=== PATIENT | female | born 2000 | race African-American/Black ===

== ENCOUNTER 2020-10-16 05:37 | Inpatient (IN) | payer MEDICAID ==
[~2020-10-16 05:37] MED LIST: Acetaminophen 500 MG Tab PO ONE; Celecoxib 200 MG Cap PO ONE; Scopolamine 1.5 MG Transdermal Patch TOP ONE
[2020-10-16] MEDS ORDERED: Dextrose 5%-Lactated Ringers 1,000 ML IV SCH ×2 (06:00→10:00)
[2020-10-16] MEDS ORDERED: cefOXitin 2 GM Vial ONE (06:33)
[2020-10-16] MEDS ORDERED: cefOXitin 2 GM in Sodium Chloride 0.9% 50 ML IV ONE (07:00)
[2020-10-16] MEDS ORDERED: Dexamethasone 4 MG/ML SDV ONE (07:02)
[2020-10-16] MEDS ORDERED: Ondansetron 4 MG/2 ML SDV ONE (07:02)
[2020-10-16] MEDS ORDERED: Glycopyrrolate 0.2 MG/ML 5 ML MDV ONE (07:02)
[2020-10-16] MEDS ORDERED: Succinylcholine 200 MG/10 ML MDV ONE (07:02)
[2020-10-16] MEDS ORDERED: Neostigmine Methylsulfate 1 MG/ML 5 ML Syringe ONE (07:02)
[2020-10-16] MEDS ORDERED: Rocuronium 50 MG/5 ML Vial ONE (07:02)
[2020-10-16] MEDS ORDERED: Propofol 200 MG/20 ML SDV ONE (07:02)
[2020-10-16] MEDS ORDERED: fentaNYL 250 MCG/5 ML SDV ONE ×2 (07:04→07:37)
[2020-10-16] MEDS ORDERED: Ketamine 50 MG in Sodium Chloride 0.9% 49.5 ML IV SCH (07:30)
[2020-10-16] MEDS ORDERED: MAGNESIUM SULFATE IV ONE (07:30)
[2020-10-16] MEDS ORDERED: Magnesium Sulfate 3.8 GM in Sodium Chloride 0.9% 100 ML IV SCH (07:30)
[2020-10-16] MEDS ORDERED: SODIUM CHLORIDE 0.9% IV ONE (07:30)
[2020-10-16] MEDS ORDERED: Ketamine 500 MG/5 ML MDV IV SCH (07:30)
[2020-10-16] MEDS ORDERED: fentaNYL 100 MCG/2 ML SDV ONE (08:16)
[2020-10-16] MEDS ORDERED: Sugammadex Sodium 200 MG/2 ML VIAL ONE (08:33)
[2020-10-16] MEDS ORDERED: hydrOXYzine HCL 100 MG/2 ML SDV IM ONE (08:54)
[2020-10-16] MEDS ORDERED: fentaNYL 100 MCG/2 ML SDV IVPUSH ONE (08:54)
[2020-10-16] MEDS ORDERED: Cyclobenzaprine 10 MG Tab PO PRN (10:01)
[2020-10-16] MEDS ORDERED: Calcium Gluconate 10% 1 GM/10 ML SDV IVPUSH PRN (11:00)
[2020-10-16] MEDS ORDERED: diphenhydrAMINE 50 MG/ML SDV IVPUSH PRN (11:00)
[2020-10-16] MEDS ORDERED: hydrOXYzine HCL 100 MG/2 ML SDV IM PRN (11:00)
[2020-10-16] MEDS ORDERED: Acetaminophen 500 MG Tab PO PRN (11:00)
[2020-10-16] MEDS ORDERED: HYDROmorphone 0.5 MG/0.5 ML Syringe IVPUSH PRN (11:00)
[2020-10-16] MEDS ORDERED: Labetalol 20 MG/4 ML Syringe IVPUSH PRN (11:00)
[2020-10-16] MEDS: Ondansetron 4 MG/2 ML SDV IVPUSH PRN (11:18)
[2020-10-16] MEDS: Acetaminophen 500 MG Tab PO SCH ×2 (13:22→21:38)
[2020-10-16] MEDS: cefOXitin 2 GM in Sodium Chloride 0.9% 50 ML IV SCH ×2 (13:22→20:31)
[2020-10-16] MEDS ORDERED: Pantoprazole 40 MG Vial IVPUSH SCH (14:00)
[2020-10-16] MEDS: Metoclopramide 10 MG/2 ML SDV IVPUSH PRN (14:15)
[2020-10-16] MEDS: Heparin Sodium 5,000 Units/ML Vial SUBCUT SCH (15:38)
[2020-10-16] MEDS ORDERED: MVI, Adult with Vitamin K 10 ML, Thiamine 200 MG, Zinc/Copper/Manganese/Selenium 1 ML i... IV SCH ×4 (16:00)
[2020-10-16] MEDS: HYDROmorphone 1 MG/ML Syringe IV PRN (18:37)
[2020-10-16] MEDS: buPROPion 150 MG Tab.SR PO SCH (20:35)
[2020-10-16] MEDS ORDERED: Acetaminophen Soln 650 MG/20.3 ML UD Cup PO PRN (21:59)
[2020-10-16] MEDS: Acetaminophen Soln 650 MG/20.3 ML UD Cup PO SCH (22:12)
[2020-10-17] MEDS: Ondansetron 4 MG/2 ML SDV IVPUSH PRN (01:12)
[2020-10-17] MEDS: HYDROmorphone 1 MG/ML Syringe IV PRN (01:16)
[2020-10-17] MEDS: cefOXitin 2 GM in Sodium Chloride 0.9% 50 ML IV SCH (01:21)
[2020-10-17] MEDS ORDERED: Iopamidol 612 MG/ML 50 ML SDV PO STA (03:11)
[2020-10-17] MEDS: Heparin Sodium 5,000 Units/ML Vial SUBCUT SCH ×2 (03:12→15:38)
[2020-10-17] MEDS: Acetaminophen Soln 650 MG/20.3 ML UD Cup PO SCH ×3 (06:00→21:38)
[2020-10-17] MEDS ORDERED: Dextrose 5%-Lactated Ringers 1,000 ML IV SCH (07:15)
[2020-10-17] MEDS ORDERED: hydrOXYzine HCl 25 MG Tab PO PRN (07:16)
[2020-10-17] MEDS: buPROPion 150 MG Tab.SR PO SCH ×2 (08:47→21:38)
[2020-10-17] MEDS: Spironolactone 25 MG Tab PO SCH (08:47)
[2020-10-17] MEDS: Celecoxib 200 MG Cap PO SCH ×2 (08:47→21:37)
[2020-10-17] MEDS: Ondansetron 4 MG Tab.DIS PO PRN ×2 (08:53→19:46)
[2020-10-17] MEDS ORDERED: SCOPOLAMINE PATCH CHECK TOP SCH (09:00)
--- NOTE | 2020-10-17 09:14 | PN ---
DATE OF SERVICE: 10/17/2020 SUBJECTIVE: Ever is postoperative day #1. Pain has been controlled. She has been up, ambulating. Oral intake is 660. Urine output 2550. She has no concerns or questions. OBJECTIVE: GENERAL: Ever is a pleasant 20-year-old female. VITAL SIGNS: TPR is 99, 99, 20, blood pressure 144/99. HEENT: Negative. NECK: Supple. HEART: Regular rate and rhythm. LUNGS: Clear. ABDOMEN: Dressings dry and intact. Abdominal binder is on. CLARICE drain is as above. EXTREMITIES: peripheral edema. ASSESSMENT: Laparoscopic sleeve gastrectomy, liver biopsy, repair of diaphragmatic hernia for morbid obesity, hepatomegaly, diaphragmatic hernia. Date of procedure: 10/16/2020. Surgeon: Narendra Nieto MD. PLAN: 1. Decrease IV to 100 mL per hour. 2. Step 2 gastric bypass diet with no cereal. 3. Atarax 25 mg one q.4 hours p.r.n. pain. 4. Zofran 4 mg ODT q.4 hours p.r.n. nausea. 5. Discontinue IV Dilaudid. 6. Dressing off, may shower. 7. Communication order: 3 med cups per hour, record at bedside. 8. We will evaluate p.r.n. or in a.m. Barbara Mercado PA-C /[id number]
--- NOTE | 2020-10-17 09:21 | CR ---
[facility] HISTORY: Postbariatric surgery FINDINGS: Patient swallowed water-soluble contrast. Upright views of the abdomen show no evidence of extravasation or obstruction. There is a surgical drain in the left upper quadrant. IMPRESSION: Status post bariatric surgery No extravasation or obstruction seen
[2020-10-17] MEDS: oxyCODONE 5 MG Tab PO PRN ×2 (09:50→19:45)
[2020-10-17] MEDS: Metoclopramide 10 MG/2 ML SDV IVPUSH PRN (10:23)
[2020-10-17] MEDS ORDERED: MVI, Adult with Vitamin K 10 ML, Thiamine 200 MG, Zinc/Copper/Manganese/Selenium 1 ML i... IV SCH ×4 (16:00)
[2020-10-17] MEDS ORDERED: Pantoprazole 40 MG Delayed-Release Granules 1 Packet PO SCH (16:00)
[2020-10-18] MEDS: Acetaminophen Soln 650 MG/20.3 ML UD Cup PO SCH (04:59)
[2020-10-18] MEDS: Heparin Sodium 5,000 Units/ML Vial SUBCUT SCH (04:59)
[2020-10-18] MEDS: Spironolactone 25 MG Tab PO SCH (08:30)
[2020-10-18] MEDS: Celecoxib 200 MG Cap PO SCH (08:31)
[2020-10-18] MEDS: buPROPion 150 MG Tab.SR PO SCH (08:31)
[2020-10-18] MEDS ORDERED: Cyanocobalamin (Vitamin B12) 1,000 MCG/ML SDV IM ONE (09:00)
--- NOTE | 2020-10-18 12:41 | DISCH ---
ADMISSION DIAGNOSES: Morbid obesity, body mass index 44.2; back pain; arthralgia, both knees; history of cigarette smoking; and history of H pylori. DISCHARGE DIAGNOSES: Laparoscopic sleeve gastrectomy, liver biopsy, and repair of diaphragmatic hernia. POSTOPERATIVE DIAGNOSIS: Morbid obesity, hepatomegaly, diaphragmatic hernia. Date of procedure: 10/16/2020. Surgeon: Narendra Nieto MD. HISTORY: Ever is a pleasant 20-year-old female with longstanding history of morbid obesity and increasing comorbidities. After preoperative evaluation and discussion of possible risks and possible complications, she wished to proceed with surgical procedure. HOSPITAL COURSE: Ever had her surgery on 10/16/2020. She had no operative complications. On postoperative day #1, she was started on step 2 gastric bypass diet with no cereal. Her activity was good. She received dietary instruction. Vital signs remained stable. On postoperative day #2, she was able to be discharged to home. PHYSICAL EXAMINATION: GENERAL: Ever is a pleasant 20-year-old female. VITAL SIGNS: Height is 5 feet 7 inches, weight is 282 pounds, BMI 42.2. TPR 98.3, 96, 16, blood pressure 123/76. HEENT: Negative. NECK: Supple. HEART: Regular rate and rhythm. LUNGS: Clear. ABDOMEN: CLARICE drain removed. Trocar sites look good. Sutures intact. Abdominal binder is on. EXTREMITIES: Without peripheral edema. DISPOSITION: Discharged home. CONDITION: Stable and improving. FOLLOWUP APPOINTMENT: Barbara Mercado PA-C, at [facility] on 10/26/2020 at 10:15 a.m. HOME PRESCRIPTION: 1. Celebrex 200 mg b.i.d., #28. 2. Tylenol 500 mg, take 1000 mg q.8 hours p.r.n. pain. 3. Zofran ODT 4 mg every 4 hours p.r.n. nausea, #30. 4. To resume home medication: a. She has a Nexplanon in for control. b. Hydroquinone 1 applicator topical twice daily. c. Spironolactone 100 mg oral daily. d. Bupropion 150 mg oral twice daily. 5. She is to discontinue vitamins and supplements until after first postop appointment. DIET: Step 2 gastric bypass diet for 30 days until 11/17/2020. ACTIVITY: No lifting greater than 10 pounds for 2 weeks. OTHER ACTIVITY: Walk 6 times daily inside your home. Driving: Do not drive for 1 week. Shower/bathing: May shower. DISCHARGE INSTRUCTIONS: Notify provider if any fever, increased pain, swelling, redness, drainage, nausea, or vomiting. Keep site clean and dry. Wear abdominal binder for 2 weeks and as tolerated. SPECIAL INSTRUCTION: Use incentive spirometer 10 times every hour while awake. /[id number]
--- NOTE | 2020-10-28 11:23 | OR ---
DATE OF PROCEDURE: 10/16/2020 SURGEON: Narendra Nieto MD PREOPERATIVE DIAGNOSIS: Morbid obesity. POSTOPERATIVE DIAGNOSES: 1. Morbid obesity. 2. Marked hepatomegaly. 3. Paraesophageal diaphragmatic hernia. OPERATIVE PROCEDURES: 1. Laparoscopic sleeve gastrectomy (46643). 2. Subhash-Cut needle liver biopsy (81936). 3. Repair of paraesophageal diaphragmatic hernia (02182). ANESTHESIA: General. MILLWRIGHT APPRENTICE: Barbara Mercado PA-C INDICATIONS FOR PROCEDURE: This is a 20-year-old female presenting with longstanding morbid obesity and increasingly significant comorbidities. After preoperative evaluation and discussion, she wished to proceed with a sleeve gastrectomy. Potential risks of the procedure including bleeding, infection, leaks from the GI tract staple line, as well as potential hemorrhagic, septic, or other complications potentially leading to were all discussed, and the patient wishes to proceed. DETAILS OF PROCEDURE: The patient was taken to the operating room. After general endotracheal anesthesia was induced, she was placed in the lithotomy position and the abdomen prepped and draped. At 15 cm inferior and 5 cm left of xiphoid process, a transverse incision was made and the peritoneal cavity entered under direct vision with an Optiview trocar, inflated to 15 mmHg pressure of CO2. Laparoscope was reinserted. No underlying trocar insertion site injuries were seen. Bilateral transversus abdominis plane blocks were placed and 5 additional trocars were placed across the upper mid abdomen. The patient was noted to have marked hepatomegaly with liver volume being roughly 2-3 times of normal liver, grossly fatty infiltrated. Subhash-Cut needle biopsies were obtained from the left lobe of the liver. Minimal bleeding from the biopsy sites which was controlled with electrocautery. At this point, the liver was retracted anteriorly. The patient was noted to have a moderate- sized paraesophageal diaphragmatic hernia. The latter was reduced and the peritoneum overlying it incised and reflected downward and anterior repair of the diaphragmatic hernia was then accomplished with a series of 0 Ethibond sutures reinforced with PTFE pledgets. Beginning at the greater curvature, the omentum was divided away from the edge of the stomach with a Harmonic scalpel. This continued proximally across the short gastric vessels including the highest and posterior short gastric vessels. The posterior aspect of the fundus was then dissected free from the left crura to avoid any redundant stomach being left in place in that. The division of the omentum then began distally to 0.2 cm proximal to the pylorus. The resection process was then initiated after marking out the antrum and the incisura angularis area with electrocautery anteriorly to map out a staple line that would overly tighten the incisura angularis. The first 2 firings of the dissection were with un- reinforced with BALTAZAR black loads. A 32-Swiss size suction tube was then placed orally per Anesthesia and then positioned across the lesser curvature of the stomach and the remainder of the gastrectomy was completed with that as a template using reinforced black and purple loads after completion of the resection. The both staple lines were found to be intact. At this point, fibrin sealant was placed along the length of the gastric staple line focusing on the area of the esophagogastric junction. The omentum was then tacked up along those areas as well, either held in place by the fibrin sealant or sutured with some 3-0 Vicryl stitch to keep it in place. At that point, the gastric specimen was retrieved through the left lateral trocar site. Leak test was accomplished with injection of air into the stomach until it was densely distended and the involved area was submerged with an antibiotic-containing saline solution. No leaks or bleeding were seen. A single Omega- Rutherford drain was then taken out through the left lateral trocar site and positioned across the area of the esophagogastric junction and from there up into the splenic fossa. The trocars were then removed and the peritoneal cavity deflated. Incisions were closed with some 4-0 Vicryl skin stitch and drains the affixed with a 4-0 Vicryl stitch as well. The patient was taken to the recovery room in satisfactory condition. Physician speech language pathology assistant, Barbara Mercado, played an essential role in assisting in this case helping to position the patient, retract structures as needed, as well as suturing and cutting sutures when indicated. Her presence improved patient safety and decreased the operative time. Narendra Nieto MD /[id number]
== END 2020-10-18 09:38 | disposition home or self-care (01) | DRG 621 ==
LOC: JP.SDS 05:37 → JP.SDSSCHI 05:37 → JP.2SS 08:55 → EDSTATUS 09:15
PROVIDERS: ADMIT Surgery; ATTEND Surgery
PROC: 0DB64Z3 Excision of Stomach, Percutaneous Endoscopic Approach, Vertical (ICD-10-PCS; principal; 2020-10-16)
PROC: 0FB24ZX Excision of Left Lobe Liver, Percutaneous Endoscopic Approach, Diagnostic (ICD-10-PCS; 2020-10-16)
PROC: 0BQT4ZZ Repair Diaphragm, Percutaneous Endoscopic Approach (ICD-10-PCS; 2020-10-16)
DX: E66.01 Morbid (severe) obesity due to excess calories (principal); Z68.41 Body mass index [BMI] 40.0-44.9, adult; K44.9 Diaphragmatic hernia without obstruction or gangrene; R16.0 Hepatomegaly, not elsewhere classified; M54.9 Dorsalgia, unspecified; L70.0 Acne vulgaris; Z30.017 Encounter for initial prescription of implantable subdermal contraceptive
CPT/HCPCS: 36415; 74240; 74240-26; 81025; 82962; 85027; 86850; 86900; 86901; 88307; 88313; 93005; 93010; 94762; A9270-GY; C9113; J0171; J0330; J0694; J1100; J1170; J1644; J1815-GY; J2405; J2704; J2710; J2765; J2795; J3010; J3410; J3411; J3420; J3475; J3490; J7050; J7121; Q9967